=== PATIENT | female | born 1950 ===

== ENCOUNTER → 2017-02-08 | Outpatient (CLI) | payer MEDICARE, BC ==
[~2017-02-08] MED LIST: NORCO 5-325 MG1 TAB PO; TRASTUZUMAB IV
--- NOTE | ~2017-02-08 | ECHO ---
Transthoracic Echocardiography Report (TTE) Demographics Patient Name HUBERT MEJIAS Date of Study 02/08/2017 Patient Number [id number] Visit Number [id number] Date of 1950 Room Number Accession Number [id number] Gender Female Age 66 year(s) Referring Cande Mosher [employer] Architect Daniel Washington Physician RDCS, RVT Cande Mosher Physician Interpreting Yobany Prasad [employer]airman Physician Supervising Ordering Physician Cande Mosher MD, MD/MLP Nurse Stress [employer] Physical Education Professor Conclusions Contractility Score Summary Normal Left Ventricular contractility was noted. Summary The estimated left ventricular ejection fraction is 55-60% with normal WM.Normal LV wall thickness and internal dimension. Compared to study dated 07/25/2016 no significant changes noted. Procedure Type of Study TTE procedure:Echo Limited w/o Contrast. Procedure Date Date: 02/08/2017 Start: 08:50 AM Study Location: Echo Lab Technical Quality: Adequate visualization Indications:High Risk Medication Use. Appropriate Use Criteria: 9 Patient Status: Routine HR: 64 bpm BP: 120/61 mmHg M-Mode/2D Measurements LV Diastolic Dimension: 4.76 cm LV Systolic Dimension: 3.5 cm LV Septum Diastolic: 0.62 cm LV PW Diastolic: 0.66 cm LA Dimension: 2.8 cm RV Diastolic Dimension: 2.48 cm LVOT VTI: 19.3 cm Doppler Measurements AV Peak Velocity: 1.02 m/s AV Peak Gradient: 4.16 mmHg AV Mean Gradient: 3 mmHg LVOT Peak Velocity: 0.9 m/s Findings Left Ventricle Normal left ventricle size and function. Right Ventricle Normal appearing right ventricle structure and function. Left Atrium Normal appearing left atrial size. Right Atrium Normal appearing right atrial size. Mitral Valve Trivial mitral regurgitation by color Doppler. Aortic Valve Normal aortic valve structure and function. Tricuspid Valve Trivial tricuspid regurgitation by color Doppler. Pulmonic Valve Normal pulmonic valve structure and function. Pericardial Effusion No evidence of pericardial effusion. Miscellaneous Visualized portions of the aortic root and ascending aorta appear normal in size. Pleural Effusion No evidence of pleural effusion. Contractility Score LV regional wall motion:(0-Non visualized 1-Normal 2-Hypokinesis 3-Akinesis 4-Dyskinesis 5-Aneurysm) Signature dtt: Shanice Haywood dtoni: 02/08/17 0850 Physician Self Edit
== END | disposition disaster alternative care site (69) ==
LOC: GCAR 02-05 13:00
DX: C50.412 Malignant neoplasm of upper-outer quadrant of left female breast (principal); D70.8 Other neutropenia; M79.1 Myalgia; G62.0 Drug-induced polyneuropathy

== ENCOUNTER → 2017-06-18 | Outpatient (CLI) | payer MEDICARE, BC | END | disposition disaster alternative care site (69) | LOC: LKCL 11:20 | DX: Z12.4 Encounter for screening for malignant neoplasm of cervix (principal) | CPT/HCPCS: G0145 ==